=== PATIENT | female | born 1950 | race Caucasian/White ===

== ENCOUNTER 2021-02-08 17:51 | Inpatient (IN) | payer MEDICARE, OTHER ==
[~2021-02-08] VITALS: Ht 160 cm; Wt 46.0 kg
[2021-02-08] MEDS ORDERED: PROVENTIL HFA6.7 GM INH (20:59)
[2021-02-08] MEDS ORDERED: HYDROCODON-ACE1 EAC4 PO (20:59)
[2021-02-09 07:13] LABS: HEMOGLOBIN 11.1 gm/dl (12.3-15.3); RED BLOOD COUNT 3.68 M/UL (4.00-5.10); WHITE BLOOD COUNT 11.7 K/UL (4.5-11.0)
[2021-02-09 19:18] LABS: HEMOGLOBIN 10.6 gm/dl (12.3-15.3); RED BLOOD COUNT 3.58 M/UL (4.00-5.10); WHITE BLOOD COUNT 20.7 K/UL (4.5-11.0)
[2021-02-09 20:35] LABS: BUN/CREATININE RATIO 24 (0-10)
[2021-02-10 05:32] LABS: HEMOGLOBIN 9.3 gm/dl (12.3-15.3)
[2021-02-10 05:39] LABS: RED BLOOD COUNT 3.1 M/UL (4.00-5.10)
[2021-02-10 05:58] LABS: BUN/CREATININE RATIO 28 (0-10)
[2021-02-11 07:04] LABS: HEMOGLOBIN 9.4 gm/dl (12.3-15.3); RED BLOOD COUNT 3.13 M/UL (4.00-5.10); WHITE BLOOD COUNT 11.4 K/UL (4.5-11.0)
[2021-02-11 07:37] LABS: BUN/CREATININE RATIO 24 (0-10)
[2021-02-12 08:06] LABS: HEMOGLOBIN 8.6 gm/dl (12.3-15.3); RED BLOOD COUNT 2.9 M/UL (4.00-5.10); WHITE BLOOD COUNT 9.4 K/UL (4.5-11.0)
[2021-02-12 08:43] LABS: BUN/CREATININE RATIO 12 (0-10)
[2021-02-13 02:57] LABS: HEMOGLOBIN 8.7 gm/dl (12.3-15.3); RED BLOOD COUNT 2.91 M/UL (4.00-5.10); WHITE BLOOD COUNT 9.9 K/UL (4.5-11.0)
[2021-02-13 03:30] LABS: BUN/CREATININE RATIO 14 (0-10)
[2021-02-13] MEDS ORDERED: LISINOPRIL10 MG PO (12:05)
[2021-02-13] MEDS ORDERED: NORVASC10 MG PO (12:05)
[2021-02-13] MEDS ORDERED: AUGMENTIN 875-1 EACH PO (12:09)
[2021-02-13] MEDS ORDERED: ADVAIR HFA 230/12 GM INH (12:30)
== END 2021-02-13 16:19 | disposition home health service (06) | DRG 483 ==
LOC: CCU 20:28 → M/S 20:28 → 2 EAST 02-09 18:27 → M/S 02-09 18:28 → CCU 02-09 20:53 → M/S 02-10 22:48
PROVIDERS: Emergency Medicine; Internal Medicine; Orthopaedic Surgery; ADMIT Internal Medicine
PROC: 0LS40ZZ Reposition Left Upper Arm Tendon, Open Approach (ICD-10-PCS; 2021-02-09)
PROC: 0RRK00Z Replacement of Left Shoulder Joint with Reverse Ball and Socket Synthetic Substitute, Open Approach (ICD-10-PCS; principal; 2021-02-09 20:30)
DX: S42.292A Other displaced fracture of upper end of left humerus, initial encounter for closed fracture (principal); J69.0 Pneumonitis due to inhalation of food and vomit; J96.21 Acute and chronic respiratory failure with hypoxia; G93.41 Metabolic encephalopathy; E87.2 Acidosis; E87.1 Hypo-osmolality and hyponatremia; E44.1 Mild protein-calorie malnutrition; Z68.1 Body mass index [BMI] 19.9 or less, adult; D62 Acute posthemorrhagic anemia; Z20.822 Contact with and (suspected) exposure to COVID-19; W01.0XXA Fall on same level from slipping, tripping and stumbling without subsequent striking against object, initial encounter; J43.9 Emphysema, unspecified; I10 Essential (primary) hypertension; F17.210 Nicotine dependence, cigarettes, uncomplicated; E11.9 Type 2 diabetes mellitus without complications; Z82.49 Family history of ischemic heart disease and other diseases of the circulatory system; Z79.899 Other long term (current) drug therapy; Z99.81 Dependence on supplemental oxygen
CPT/HCPCS: 36415; 36600; 71045; 73020; 73200; 80048; 80053; 82803; 82962; 83605; 83735; 84132; 85025; 85027; 93005; 94640; 94660; 94664; 94760; 97110; 97162; 97166; 97530-GP-CQ; 97535; C1713; C1776; J0690; J1100; J1650; J2001; J2250; J2270; J2370; J2405; J2543; J2704; J2710; J2795; J3010; J3370; J7030; J7120